=== PATIENT | female | born 1980 | race Hispanic/Latino ===

== ENCOUNTER 2017-03-19 13:26 | Emergency (ER) | payer SELFPAY ==
[2017-03-19 18:27] LABS: #Eosinphils 0.2 thou/uL (0.0-0.7); #Lymphocytes 1.3 thou/uL (1.20-3.40); #Monocytes 0.5 thou/uL (0.11-0.59); #Neutrophils 7.9 thou/uL (1.40-6.50); %Basophils 0.2 % (0.0-1.0); %Eosinophils 2.2 % (0.0-10.0); %Lymphocytes 12.6 % (21.0-51.0); %Monocytes 5.2 % (0.0-10.0); Mean Platelet Volume 6.7 fL (7.4-10.4); Red Blood Cell (RBC) Count 4.43 mill/uL (4.20-5.40); White Blood Cell (WBC) Count 9.9 thou/uL (4.8-10.8)
[2017-03-19 18:49] LABS: ALT (SGPT) 10 U/L (8-55); AST (SGOT) 13 U/L (5-34); Alkaline Phosphatase 134 U/L (40-150); Anion Gap 11 mmol/L (10-20); BUN (Urea Nitrogen) 7 mg/dL (7.0-18.7); Bilirubin, Total 0.2 mg/dL (0.2-1.2); Calc. Creatinine Clearance 0 mL/min (70-130); Calcium 8.7 mg/dL (7.8-10.44); Carbon Dioxide 22 mmol/L (22-29); Chloride 106 mmol/L (98-107); Estimated GFR-MDRD Greater than 90; Globulin 3.6 g/dL (2.4-3.5); Lipase 31 U/L (8-78); Protein, Total 7.5 g/dL (6.0-8.3)
[2017-03-19 19:21] LABS: Bilirubin Negative (Negative); Blood, Urine Moderate (Negative); Glucose, Urine (Dipstick) Negative (Negative); Ketone, Urine Negative (Negative); Nitrite Negative (Negative); Protein, Urine (Dipstick) Negative (Neg-Trace); Urobilinogen 0.2 mg/dL (0.2-1.0)
[2017-03-19 19:23] LABS: Bacteria/HPF Rare-Few HPF (None Seen); Hyaline Casts/LPF 0-3 HYALINE CAST LPF (0-3 Hyaline); Squamous Epithelial 0-3 HPF (0-3); WBC/HPF 0-3 HPF (0-3)
== END 2017-03-19 19:14 | disposition home or self-care (01) ==
LOC: ERS 13:26
DX: K52.9 Noninfective gastroenteritis and colitis, unspecified (principal); F17.210 Nicotine dependence, cigarettes, uncomplicated
CPT/HCPCS: 36415; 80053; 81003; 81015; 81025; 82274; 83690; 85025; 99284